=== PATIENT | female | born 2000 | race Caucasian/White ===

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

== ENCOUNTER 2023-05-29 21:36 | Emergency (ER) | payer BC, OTHER ==
[2023-05-29] MEDS ORDERED: predniSONE 20 MG Tab PO ONE (22:43)
== END 2023-05-29 23:13 | disposition home or self-care (01) ==
LOC: MW.ED 21:36
DX: L42 Pityriasis rosea (principal)
CPT/HCPCS: 99282; A9270